=== PATIENT | female | born 1965 | race Hispanic/Latino ===

== ENCOUNTER 2024-10-31 21:25 | Emergency (ER) | payer OTHER ==
[~2024-10-31] VITALS: Ht 152.4 cm; Wt 62.6 kg
[2024-10-31] MEDS: acetaMINOPHEN 500 MG TABLET PO ONE (22:01)
--- NOTE | 2024-10-31 22:04 | NUR ---
to radiology at this time.
[2024-10-31 22:29] VITALS: BP 139/59; PULSE 56; RESP 16; TEMP 97.9; O2SAT 99
--- NOTE | 2024-10-31 22:29 | NUR ---
back from radiology
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
--- NOTE | 2024-11-01 00:30 | HMCIMG ---
HIP UNILAT 2-3VW RIGHT HISTORY: Pain COMPARISON: None TECHNIQUE: 3 images of the right hip were obtained. FINDINGS: There is no acute displaced fracture or dislocation. Right hip joint space narrowing is seen. Degenerative changes are seen. IMPRESSION: 1. Findings as described above.
--- NOTE | 2024-11-01 00:30 | HMCIMG ---
KNEE 3VWS RT HISTORY: Pain COMPARISON: None TECHNIQUE: 3 mm in FINDINGS: There is no acute displaced fracture or dislocation. IMPRESSION: 1. Findings as described above.
--- NOTE | 2024-11-01 00:33 | HMCIMG ---
SHOULDER COMP 2+VWS RT HISTORY: Pain COMPARISON: None TECHNIQUE: 2 images of right shoulder were obtained. FINDINGS: There is no acute displaced fracture or dislocation. Degenerative changes are seen. IMPRESSION: 1. Findings as described above.
--- NOTE | 2024-11-01 00:34 | HMCIMG ---
CERV SPINE 2-3VWS HISTORY: Pain COMPARISON: None FINDINGS: 3 images of cervical spine were obtained. Disc space narrowings are seen at C5-6 and C6-7 levels. There are degenerative changes cervical spine spondylosis. There is straightening of normal lordotic curvature which may be related to muscle spasm or positioning. No loss of vertebral height is seen. No fracture or dislocation is seen. Degenerative changes are seen. IMPRESSION: 1. No fracture is seen. 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
== END 2024-10-31 23:09 | disposition home or self-care (01) ==
LOC: EDH 21:25
DX: S70.01XA Contusion of right hip, initial encounter (principal); S80.01XA Contusion of right knee, initial encounter; S10.93XA Contusion of unspecified part of neck, initial encounter; I10 Essential (primary) hypertension; W18.39XA Other fall on same level, initial encounter; Y93.89 Activity, other specified; Y92.89 Other specified places as the place of occurrence of the external cause; Y99.8 Other external cause status
CPT/HCPCS: 72040; 73030; 73502; 73562; 99284